=== PATIENT | male | born 1960 | race Two or more races ===

== ENCOUNTER 2020-08-22 08:05 | Day surgery (SDC) | payer BC ==
[~2020-08-22] VITALS: Ht 175.3 cm; Wt 80.7 kg
[2020-08-22] VITALS (8 sets, daily range): BP systolic 117–120; BP diastolic 55–82
--- NOTE | 2020-08-22 07:29 | Anethesia Preoperative Eval ---
Anesthesia Pre-op PMH/ROS General Date of Evaluation: Aug 22, 2020 Time of Evaluation: 07:28 Anesthesiologist: jeanette ASA Score: ASA 2 Mallampati Score Class I : Soft palate, uvula, fauces, pillars visible Class II: Soft palate, uvula, fauces visible Class III: Soft palate, base of uvula visible Class IV: Only hard plate visible Mallampati Classification: Class II Surgeon: magdi Diagnosis: gerd, colon screening Surgical Procedure: egd/colonoscopy Anesthesia History: none Social History: smoking - former smoker Family History: no anesthesia problems Allergies: Coded Allergies: No Known Allergies (Unverified , 08/22/20) Medications: see eMAR Patient NPO?: Yes Past Medical History Gastrointestinal/Genitourinary: Reports: GERD, other - weight loss, unable to eat HEENT: Reports: [place] (L), [place] (R), other - decreased visual acuity Anesthesia Pre-op Phys. Exam Physician Exam Last Vital Signs Date Time Temp Pulse Resp B/P (MAP) Pulse Ox O2 Delivery O2 Flow Rate FiO2 08/22/20 09:52 Room Air 08/22/20 09:22 97.6 82 18 119/55 98 Constitutional: NAD Neurologic: CN 2-12 intact Cardiovascular: RRR Respiratory: CTA Gastrointestinal: S/NT/ND Airway Exam Mallampati Score: Class II MO: limited Neck: flexible TMD: 2fb ROM: limited Anesthesia Pre-op A/P Labs Microbiology Date/Time Source Procedure Growth Status 08/22/20 08:55 Nasopharynx SARS-CoV-2 RdRp Gene Assay - Final Complete Studies Pre-op Studies: EKG - sinus rhythm w/ pvcs Risk Assessment & Plan Assessment: asa2 Plan: mac Status Change Before Surgery: No Pre-Antibiotics Drug: Galina Carson MD Aug 22, 2020 07:29
--- NOTE | 2020-08-22 09:20 | Pre-Procedure Note/Attestation ---
Pre-Procedure Note/Attestation Complete Prior to Procedure Planned Procedure: not applicable Procedure Narrative: EGD and colonoscopy Indications for Procedure Pre-Operative Diagnosis: weight loss Attestation I attest that I discussed the nature of the procedure; its benefits; risks and complications; and alternatives (and the risks and benefits of such alternatives), prior to the procedure, with the patient (or the patient's legal customer sales representative). I attest that, if there was a reasonable possibility of needing a blood transfusion, the patient (or the patient's legal customer sales representative) was given the [facility] standardized written summary, pursuant to the Raymundo Chaya Blood Safety Act ([place] Health and Safety Code # 1645, as amended). I attest that I re-evaluated the patient just prior to the surgery and that there has been no change in the patient's H&P, except as documented below: Evgeny Rahman MD Aug 22, 2020 09:20
--- NOTE | 2020-08-22 09:21 | Short Stay Surgery H&P ---
History of Present Illness History of Present Illness Chief Complaint wt loss HPI Wendy Feng is a 60 year old male who was admitted on for Gerd,Colon Screening, Weight Loss,Unable To Eat Patient History Allergies: Coded Allergies: No Known Allergies (Unverified , 08/22/20) PAST MEDICAL HISTORY: (1) GERD (gastroesophageal reflux disease) Medication History No Active Prescriptions or Reported Meds Review of Systems Cardiovascular: Reports: no symptoms Respiratory: Reports: no symptoms Skeletal: Reports: no symptoms Gastrointestinal: Reports: gastro esophageal reflux disease Genitourinary: Reports: no symptoms Neurologic: Reports: no symptoms Endocrine: Reports: no symptoms Hematologic: Reports: no symptoms Physical Exam Skin: normal HENT: normal Heart: normal Lungs: normal Abdomen: normal Extremities: normal Plan Plan of Care EGD and colonoscopy Attestation Are the patient's medical conditions optimized for surgery? Attestation Response: yes Evgeny Rahman MD Aug 22, 2020 09:21
[2020-08-22] MEDS ORDERED: LR 1000ml 1,000 ML IVLG SCH ×2 (09:45→10:45)
[2020-08-22] MEDS ORDERED: fentaNYL 100 mcg/2 mL IV PRN (10:45)
[2020-08-22] MEDS ORDERED: DiphenhydrAMINE 50mg/ml Inj IVP PRN (10:45)
[2020-08-22] MEDS ORDERED: Atropine Inj 1mg/10ml Syr IVP PRN (10:45)
[2020-08-22] MEDS ORDERED: Midazolam 2mg/2ml Inj IVP PRN (10:45)
[2020-08-22] MEDS ORDERED: Lidocaine 1% MPF 10mg/ml 5ml ONE (11:00)
[2020-08-22] MEDS ORDERED: LR 1000ml ONE (11:00)
--- NOTE | 2020-08-22 11:02 | Endoscopy Procedure Note ---
Endoscopy Procedure Note General Indication for Procedure: wt loss Procedures Performed: EGD, colonoscopy Operative Findings/Diagnosis: gastritis, hemorrhoids Specimen: yes Pt Tolerated Procedure Well: Yes Estimated Blood Loss: none Anesthesia Anesthesiologist: milan Anesthesia: MAC Inserted Devices Implant(s) used?: No Quality Quality of Bowel Preparation: Good Did scope reach the cecum?: Yes Was there any complications?: No GI Core Measures 50 yrs or older w/o bx or poly: No 10yrs. F/U recommended: Yes If not recommended, why?: Above average risk 18 years or older w/prev. colo: No Evgeny Rahman MD Aug 22, 2020 11:02
--- NOTE | 2020-08-22 11:43 | Immediate Post-Op Evaluation ---
Immediate Post-Op Evalulation Immediate Post-Op Evalulation Procedure: egd/colonoscopy w/ bx Date of Evaluation: Aug 22, 2020 Time of Evaluation: 11:36 IV Fluids: 500ml lr Blood Products: none Estimated Blood Loss: negligible Blood Pressure Systolic: 117 Blood Pressure Diastolic: 82 Pulse Rate: 71 Respiratory Rate: 18 O2 Sat by Pulse Oximetry: 100 Temperature (Fahrenheit): 97.0 Pain Score (1-10): 0 Nausea: No Vomiting: No Complications none Patient Status: awake, reacts, patent Hydration Status: adequate Drug: Galina Carson MD Aug 22, 2020 11:43
--- NOTE | 2020-08-22 11:44 | 48 Hour Post Anesthesia Eval ---
Post Anesthesia Evaluation Procedure: egd/colonoscopy w/ bx Date of Evaluation: Aug 22, 2020 Time of Evaluation: 11:38 Blood Pressure Systolic: 120 0: 74 Pulse Rate: 71 Respiratory Rate: 18 Temperature (Fahrenheit): 97.0 O2 Sat by Pulse Oximetry: 100 Airway: patent Nausea: No Vomiting: No Pain Intensity: 0 Hydration Status: adequate Cardiopulmonary Status: stable Mental Status/LOC: patient returned to baseline Post-Anesthesia Complications: none Follow-up care needed: N/A Galina Daily MD Aug 22, 2020 11:44
--- NOTE | 2020-08-22 12:00 | Procedure Note ---
DATE OF PROCEDURE: 08/22/2020 SURGEON: Evgeny Rahman MD PROCEDURE: Upper endoscopy with biopsy and colonoscopy with biopsy. ANESTHESIA: Per Dr. Glez. INSTRUMENT: Olympus adult flexible upper endoscope and colonoscope. INDICATION: Weight loss. REASON FOR PROCEDURE: The procedure, risks, benefits, and possible consequences, including hemorrhage, aspiration, perforation and infection, and alternative treatments, were explained to the patient/legal guardian by Dr. Evgeny Rahman and the patient/legal guardian understood and accepted these risks. DESCRIPTION OF PROCEDURE: After informed consent was obtained and patient was adequately sedated, Olympus upper endoscope was advanced from mouth into the second portion of duodenum and retroflexion was performed in the stomach. The patient had 1 or 2 erosions in the antrum, nonspecific. Random biopsy from antrum was obtained to rule out H. pylori infection. No evidence of any ulceration or gastric mass. At this time, the upper endoscope was retrieved. The patient was turned over for colonoscopy. First, rectal exam was performed which was positive for internal hemorrhoids. Then, the scope was advanced from the rectum into the cecum and then subsequently into the terminal ileum. Quality of prep was very good. The patient had one diminutive polyp in the rectosigmoid area, removed with cold biopsy forceps technique. The rest of the examination grossly within normal limits. Retroflexion of rectum showed evidence of small-sized nonbleeding internal hemorrhoids. SUMMARY OF FINDINGS: 1. Gastritis, status post biopsy. 2. One or two antral erosions. 3. One colonic polyp, removed see above for details. 4. Internal hemorrhoids. RECOMMENDATIONS: Followup pathology and treat accordingly. Order some labs today for workup of weight loss. The patient most probably will benefit from CT rule out other cause of weight loss. Evgeny Rahman M.D. DR: Mike JOB#: [id number] CC:
[2020-08-22 12:10] LABS: BASOPHILS % (AUTO) 0.9 % (0.0-2.0); EOSINOPHILS % (AUTO) 0.8 % (0.0-3.0); HEMATOCRIT 42.5 % (42.0-52.0); HEMOGLOBIN 14.4 G/DL (14.2-18.0); MEAN CORPUSCULAR VOLUME 88 FL (80-99); MONOCYTES % (AUTO) 10.6 % (1.0-10.0); NEUTROPHILS % (AUTO) 73.7 % (45.0-75.0); PLATELET COUNT 267 K/UL (150-450); RED BLOOD COUNT 4.83 M/UL (4.70-6.10); RED CELL DISTRIBUTION WIDTH 11.8 % (11.6-14.8); WHITE BLOOD COUNT 11.5 K/UL (4.8-10.8)
[2020-08-22 12:50] LABS: ALANINE AMINOTRANSFERASE 66 U/L (12-78); ALBUMIN 3.1 G/DL (3.4-5.0); ALBUMIN/GLOBULIN RATIO 0.8 (1.0-2.7); ALKALINE PHOSPHATASE 30 U/L (46-116); AMYLASE 70 U/L (25-115); ANION GAP 7 mmol/L (5-15); ASPARTATE AMINO TRANSFERASE 37 U/L (15-37); BILIRUBIN,TOTAL 0.7 MG/DL (0.2-1.0); BLOOD UREA NITROGEN 13 mg/dL (7-18); CALCIUM 8.1 MG/DL (8.5-10.1); CARBON DIOXIDE 27 MMOL/L (21-32); CHLORIDE 107 MMOL/L (98-107); SODIUM 141 MMOL/L (136-145)
== END 2020-08-22 12:15 | disposition home or self-care (01) ==
LOC: GAS 08:05
DX: R63.4 Abnormal weight loss (principal); K29.70 Gastritis, unspecified, without bleeding; K63.5 Polyp of colon; K64.8 Other hemorrhoids; K21.9 Gastro-esophageal reflux disease without esophagitis; Z87.891 Personal history of nicotine dependence
CPT/HCPCS: 36415; 43239; 45380; 80053; 82150; 82378; 83690; 84439; 84443; 85025; 93005; 94003; J2704; J7120; U0002; 94150